=== PATIENT | female | born 1960 | race Caucasian/White ===

== ENCOUNTER → 2016-04-20 | Outpatient (CLI) | payer BC ==
[~2016-04-20] MED LIST: CETI10TA84 PO; CIPR-255 PO; DICY10CA55 PO; HYDR-5688 PO; HYDR25TA4 PO; LANS30CA12 PO
--- NOTE | 2016-04-20 12:32 | MAMMOGRAPHY REPORT ---
BILATERAL DIGITAL SCREENING MAMMOGRAM TOMOSYNTHESIS WITH CAD: 04/20/2016 CLINICAL HISTORY: Routine screening. Patient has no complaints. TECHNIQUE: Breast tomosynthesis in addition to standard 2D mammography was performed. Current study was also evaluated with a Computer Aided Detection (CAD) system. COMPARISON: Comparison is made to exams dated: 03/05/2015 mammogram, 12/10/2013 mammogram, 11/05/2012 mammogram, 03/17/2015 mammogram, 11/06/2011 mammogram, and 08/17/2010 mammogram - [facility]. BREAST COMPOSITION: The tissue of both breasts is almost entirely fatty. FINDINGS: No suspicious masses, calcifications, or areas of architectural distortion are noted in e ither breast. There has been no significant interval change compared to prior exams. IMPRESSION: ACR BI-RADS CATEGORY 1: NEGATIVE There is no mammographic evidence of malignancy. A 1 year screening mammogram is recommended. The p atient will receive written notification of the results. Approximately 10% of breast cancers are not detected with mammography. A negative mammographic repor t should not delay biopsy if a clinically suggestive mass is present. Astrid Scott M.D. /:04/20/2016 11:43:16 [employer]: Nava NETTLESR, M, [facility] letter sent: Normal 1/2 BI-RADS Code: ACR BI-RADS Category 1: Negative
== END | disposition home or self-care (01) ==
LOC: C.MAMM 09:57
PROVIDERS: ATTEND Nurse Practitioner
DX: Z12.31 Encounter for screening mammogram for malignant neoplasm of breast (principal)

== ENCOUNTER → 2017-05-30 | Outpatient (CLI) | payer OTHER ==
[~2017-05-30] MED LIST changes: -HYDR-5688 PO
--- NOTE | 2017-05-31 14:43 | MAMMOGRAPHY REPORT ---
BILATERAL DIGITAL SCREENING MAMMOGRAM TOMOSYNTHESIS WITH CAD: 05/30/2017 CLINICAL HISTORY: Routine screening. Patient has no complaints. TECHNIQUE: Breast tomosynthesis in addition to standard 2D mammography was performed. Current study was also evaluated with a Computer Aided Detection (CAD) system. COMPARISON: Comparison is made to exams dated: 04/20/2016 mammogram, 10/07/2015 ultrasound, 10/07/2015 mammogram, 03/29/2015 aspiration, 03/17/2015 ultrasound, and 03/17/2015 mammogram - [facility]. BREAST COMPOSITION: The tissue of both breasts is almost entirely fatty. FINDINGS: The parenchymal pattern is unchanged. No developing mass, architectural distortion or clus ter of suspicious microcalcifications is seen in either breast. IMPRESSION: ACR BI-RADS CATEGORY 2: BENIGN There is no mammographic evidence of malignancy. A 1 year screening mammogram is recommended. The pa tient will receive written notification of the results. Approximately 10% of breast cancers are not detected with mammography. A negative mammographic report should not delay biopsy if a clinically suggestive mass is present. Jocelyn Barrera M.D. ay/:05/30/2017 15:24:22 [employer]: Janeen Simmons, [facility] letter sent: Normal 1/2 BI-RADS Code: ACR BI-RADS Category 2: Benign
== END | disposition home or self-care (01) ==
LOC: C.MAMM 13:16
PROVIDERS: ATTEND Nurse Practitioner
DX: Z12.31 Encounter for screening mammogram for malignant neoplasm of breast (principal)

== ENCOUNTER 2017-09-26 14:44 | Emergency (ER) | payer OTHER ==
[~2017-09-26] VITALS: Ht 157.5 cm; Wt 103.1 kg
[2017-09-26 14:46] VITALS: TEMP 36.4; Ht 157.5 cm; Wt 103.1 kg
[2017-09-26] MEDS ORDERED: TRIA1SPR4 NAE (15:20)
[2017-09-26] MEDS ORDERED: PRLSR20 PO (15:20)
[2017-09-26] MEDS ORDERED: LISI-729 PO (15:20)
[2017-09-26] MEDS ORDERED: ALBUAER INH (15:20)
[2017-09-26] MEDS ORDERED: SODIUM CHLORIDE 0.9% 1000ML 1,000 ML IV STA (15:47)
--- NOTE | 2017-09-26 15:57 | DIAGNOSTIC IMAGING REPORT ---
CHEST ONE VIEW PORTABLE CLINICAL HISTORY: Hypertension, palpitations. COMPARISON STUDY: 10/21/2011 FINDINGS: The heart is at the upper limits of normal in size. There is no failure. There is no focal pulmonary consolidation. There are no pleural effusions.[ IMPRESSION: No active disease in the chest. Electronically signed by: Georgi Batres M.D. 09/26/2017 3:55 PM Dictated Date/Time: 09/26/2017 3:55 PM
--- NOTE | 2017-09-26 16:12 | EMERGENCY ROOM VISIT NOTE ---
History Report prepared by Marco: Terry Segovia Under the Supervision of: Dr. Yesy Culver D.O. First contact with patient: 14:58 Chief Complaint: HYPERTENSION Stated Complaint: PHYSICIAN REFERRAL, HYPERTENSION History of Present Illness The patient is a 56 year old female who presents to the Emergency Room with complaints of constant hypertension that began this morning. She states her blood pressure was "154/100". She states she was not doing anything strenuous at the time and states sitting down did not resolve her symptoms. Patient states she measures her blood pressure daily using a monitor around her upper arm. Patient states her blood pressure is usually in the "120's". She adds she takes 5mg lisinopril and 25mg of hydrochlorothiazide daily. Patient states she was referred to the ER by her PCP. She adds she has a headache located on her left-side behind her eye. Past medical history includes migraines, but patient denies her headache feeling like a migraine. She states she has felt lightheaded and "off-balance" as well. She adds she has chest pain but feels its secondary to her nerves of being in the ER. Patient adds she had blurry vision this morning but it has resolved. Patient adds she has a history of panic attacks but states she does not feel like she is having a panic attack right now. Patient adds she has been feeling more depressed recently. Patient has a family history of hypertension. Patient denies any leg swelling. Patient is present with her . Source of History: patient Onset: This morning Position: chest Timing: constant Modifying Factors (Relieving): other (None) Associated Symptoms: + headache, + chest pain Note: Positive blurry vision and lightheadedness. Negative leg swelling. Review of Systems See HPI for pertinent positives & negatives. A total of 10 systems reviewed and were otherwise negative. Past Medical & Surgical Medical Problems: (1) Chronic cholecystitis Family History Hypertension Social History Smoking Status: Never Smoker Alcohol Use: occasionally Marital Status: Housing Status: lives with family Current/Historical Medications Scheduled Cetirizine (Zyrtec), 10 MG PO QAM Hydrochlorothiazide (Hctz), 25 MG PO QAM Lisinopril (Zestril), 5 MG PO QPM Omeprazole (Prilosec), 20 MG PO QAM Scheduled PRN Albuterol Sulfate (Proventil Hfa), 1 PUFF INH for SOB/Wheezing Triamcinolone Acetonide (Nasal (Nasacort Allergy 24Hr), 1-2 SPRAYS ADAM DAILY PRN for ALLERGIES Allergies Coded Allergies: Cat Dander (Verified Adverse Reaction, Mild, STUFFY HEAD, 09/26/17) Codeine (Verified Adverse Reaction, Mild, NIGHTMARES, 12/22/15) Dust (Verified Adverse Reaction, Mild, STUFFY HEAD, 09/26/17) Grass (Verified Adverse Reaction, Mild, STUFFY HEAD, 09/26/17) POLLEN (Verified Adverse Reaction, Mild, STUFFY HEAD, 09/26/17) Physical Exam Vital Signs Date Time Temp Pulse Resp B/P (MAP) Pulse Ox O2 Delivery O2 Flow Rate FiO2 09/26/17 20:20 09/26/17 19:58 80 20 168/93 96 Room Air 09/26/17 18:30 65 20 163/113 95 09/26/17 17:51 72 19 188/127 97 Room Air 09/26/17 17:09 82 20 188/112 97 Room Air 09/26/17 15:00 85 18 192/125 96 Room Air 09/26/17 14:46 36.4 81 20 196/115 95 Room Air Physical Exam GENERAL: alert, well appearing, well nourished, no distress, non-toxic EYE EXAM: normal conjunctiva, PERRL and EOM's grossly intact OROPHARYNX: no exudate, no erythema, lips, buccal mucosa, and tongue normal and mucous membranes are moist NECK: supple, no nuchal rigidity, no adenopathy, non-tender LUNGS: Clear to auscultation. Normal chest wall mechanics HEART: no murmurs, S1 normal and S2 normal ABDOMEN: abdomen soft, non-tender, normo-active bowel sounds, no masses, no rebound or guarding. BACK: Back is symmetrical on inspection and there is no deformity, no midline tenderness, no CVA tenderness. SKIN: no rashes and no bruising UPPER EXTREMITIES: upper extremities are grossly normal. LOWER EXTREMITIES: No pitting edema. NEURO EXAM: Normal sensorium, cranial nerves II-XII grossly intact, normal speech, no gross weakness of arms, no gross weakness of legs. No drift. Finger to nose intact. Gross sensation intact. Medical Decision & Procedures ER Provider Diagnostic Interpretation: Radiology results have been interpreted by the radiologist and reviewed by me. CHEST ONE VIEW PORTABLE CLINICAL HISTORY: Hypertension, palpitations. COMPARISON STUDY: 10/21/2011 FINDINGS: The heart is at the upper limits of normal in size. There is no failure. There is no focal pulmonary consolidation. There are no pleural effusions.[ IMPRESSION: No active disease in the chest. Electronically signed by: Georgi Batres M.D. 09/26/2017 3:55 PM Laboratory Results 09/26/17 16:40 Red Blood Count 5.01, Mean Corpuscular Volume 85.4, Mean Corpuscular Hemoglobin 29.5, Mean Corpuscular Hemoglobin Concent 34.6, Mean Platelet Volume 10.5, Neutrophils (%) (Auto) 45.1, Lymphocytes (%) (Auto) 43.2, Monocytes (%) (Auto) 8.1, Eosinophils (%) (Auto) 3.1, Basophils (%) (Auto) 0.3, Neutrophils # (Auto) 2.94, Lymphocytes # (Auto) 2.81, Monocytes # (Auto) 0.53, Eosinophils # (Auto) 0.20, Basophils # (Auto) 0.02 09/26/17 16:40 Test 09/26/17 16:40 09/26/17 17:00 White Blood Count 6.51 K/uL (4.8-10.8) Red Blood Count 5.01 M/uL (4.2-5.4) Hemoglobin 14.8 g/dL (12.0-16.0) Hematocrit 42.8 % (37-47) Mean Corpuscular Volume 85.4 fL (80-100) Mean Corpuscular Hemoglobin 29.5 pg (25-34) Mean Corpuscular Hemoglobin Concent 34.6 g/dl (32-36) Platelet Count 279 K/uL (130-400) Mean Platelet Volume 10.5 fL (7.4-10.4) Neutrophils (%) (Auto) 45.1 % Lymphocytes (%) (Auto) 43.2 % Monocytes (%) (Auto) 8.1 % Eosinophils (%) (Auto) 3.1 % Basophils (%) (Auto) 0.3 % Neutrophils # (Auto) 2.94 K/uL (1.4-6.5) Lymphocytes # (Auto) 2.81 K/uL (1.2-3.4) Monocytes # (Auto) 0.53 K/uL (0.11-0.59) Eosinophils # (Auto) 0.20 K/uL (0-0.5) Basophils # (Auto) 0.02 K/uL (0-0.2) RDW Standard Deviation 47.3 fL (36.4-46.3) RDW Coefficient of Variation 15.4 % (11.5-14.5) Immature Granulocyte % (Auto) 0.2 % Immature Granulocyte # (Auto) 0.01 K/uL (0.00-0.02) Prothrombin Time 9.9 SECONDS (9.0-12.0) Prothromb Time International Ratio 0.9 (0.9-1.1) Anion Gap 7.0 mmol/L (3-11) Est Creatinine Clear Calc Drug Dose 76.0 ml/min Estimated GFR () 79.6 Estimated GFR (Non- 68.7 BUN/Creatinine Ratio 21.6 (10-20) Calcium Level 9.8 mg/dl (8.5-10.1) Magnesium Level 2.2 mg/dl (1.8-2.4) Total Bilirubin 0.6 mg/dl (0.2-1) Aspartate Amino Transf (AST/SGOT) 25 U/L (15-37) Alanine Aminotransferase (ALT/SGPT) 33 U/L (12-78) Alkaline Phosphatase 56 U/L (45-117) Troponin I < 0.015 ng/ml (0-0.045) Pro-B-Type Natriuretic Peptide 29 pg/ml (0-900) Total Protein 8.1 gm/dl (6.4-8.2) Albumin 4.2 gm/dl (3.4-5.0) Globulin 3.9 gm/dl (2.5-4.0) Albumin/Globulin Ratio 1.1 (0.9-2) Thyroid Stimulating Hormone (TSH) 1.580 uIu/ml (0.300-4.500) Urine Color YELLOW Urine Appearance CLEAR (CLEAR) Urine pH 6.5 (4.5-7.5) Urine Specific [place] 1.013 (1.000-1.030) Urine Protein NEG (NEG) Urine Glucose (UA) NEG (NEG) Urine Ketones NEG (NEG) Urine Occult Blood NEG (NEG) Urine Nitrite NEG (NEG) Urine Bilirubin NEG (NEG) Urine Urobilinogen NEG (NEG) Urine Leukocyte Esterase TRACE (NEG) Urine WBC (Auto) 1-5 /hpf (0-5) Urine RBC (Auto) 0-4 /hpf (0-4) Urine Hyaline Casts (Auto) 0 /lpf (0-5) Urine Epithelial Cells (Auto) 10-20 /lpf (0-5) Urine Bacteria (Auto) NEG (NEG) Laboratory results per my review. Medications Administered Medications (Trade) Dose Ordered Sig/Justa Route Start Time Stop Time Status Last Admin Dose Admin Sodium Chloride 1,000 ml @ 250 mls/hr Q4H STAT IV 09/26/17 15:47 09/26/17 19:46 DC 09/26/17 16:42 250 MLS/HR Lisinopril (Zestril Tab) 5 mg NOW ONCE PO 09/26/17 16:30 09/26/17 16:31 DC 09/26/17 16:42 5 MG Hydrochlorothiazide (Hydrochlorothiazide Tab) 25 mg NOW STAT PO 09/26/17 17:17 09/26/17 17:19 DC 09/26/17 17:48 25 MG ECG Per My Interpretation Indication: chest pain, other (Hypertension) Rate (beats per minute): 68 Rhythm: normal sinus Findings: no acute ischemic change, no ectopy, other (Normal axis/intervals) ED Course 1502: The patient was evaluated in room B5. A complete history and physical exam was performed. 1547: Sodium Chloride 1000 ml @ 250 mls/hr IV 1630: Lisinopril 5mg PO 1717: Hydrochlorothiazide 25mg PO 1839: I reevaluated the patient. She states she is feeling better. 2012: Upon reevaluation, the patient is feeling better. I discussed the findings and the treatment plan with the patient. She verbalizes agreement and understanding. She was discharged home. Medical Decision Differential diagnosis: Etiologies such as migraine headache, meningitis, sinusitis, CO exposure, ICH, SAH, infection, tumor, headache, sinus thrombosis, arterial dissection, as well as others were entertained. Pt well appearing here despite elevated BP. Pt with mild symptoms that improved with better BP suggestive of perhaps mild hypertensive urgency. Pt with chronic HTN and recent addition of lisinopril. Pt on very low doses of hctz and lisinopril. Does admit to eating out more which may have increased sodium intake. Denies recent illness or dehydration. BP improved here, no evidence of end organ damage. I do not suspect ICH or CVA, aaa, dissection, acs , and no evidence of ARF. No dysrhythmia noted on tele. Discussed with pt close f/u with her PCP, sx to watch/return for, continued use of her routine meds, hydration, avoidance of additional salt in her diet, she verbalized understanding of all of this and was agreeable with plan. Medication Reconcilliation Current Medication List: was personally reviewed by me Blood Pressure Screening Patient's blood pressure: Elevated blood pressure Blood pressure disposition: Referred to PCP Impression Primary Impression: Hypertension Additional Impression: Hypokalemia Scribe Attestation The scribe's documentation has been prepared under my direction and personally reviewed by me in its entirety. I confirm that the note above accurately reflects all work, treatment, procedures, and medical decision making performed by me. Departure Information Dispostion Home / Self-Care Referrals Reba Eugene D.O. (PCP) Patient Instructions My [facility] Additional Instructions Please call and follow-up with your family doctor regarding her blood pressure. Please continue your blood pressure medications as they are prescribed. If you have any recurrent headache, vision changes, chest pain, trouble breathing, palpitations, abdominal pain, swelling of the legs, numbness or tingling, dizziness, you have any other new concerns, please return to the ER immediately. Please avoid any additional salt in your diet including with processed foods, canned foods, or lunch meat. Please make sure you are drinking plenty of water. Problem Qualifiers Primary Impression: Hypertension Hypertension type: essential hypertension Qualified Codes: I10 - Essential ( primary) hypertension
[2017-09-26] MEDS ORDERED: LISINOPRIL 5 MG TAB PO ONE (16:30)
[2017-09-26 16:57] LABS: BASO % 0.3 %; BASO ABS # 0.02 K/uL (0-0.2); EOS % 3.1 %; HEMATOCRIT 42.8 % (37-47); HEMOGLOBIN 14.8 g/dL (12.0-16.0); IG# 0.01 K/uL (0.00-0.02); LYMPH % 43.2 %; LYMPH ABS # 2.81 K/uL (1.2-3.4); MEAN CELL VOLUME 85.4 fL (80-100); MEAN CORPUSCULAR HEMOGLOBIN 29.5 pg (25-34); MEAN CORPUSCULAR HGB CONC 34.6 g/dl (32-36); MEAN PLATELET VOLUME 10.5 fL (7.4-10.4); MONO % 8.1 %; MONO ABS # 0.53 K/uL (0.11-0.59); NEUT % 45.1 %; NEUT ABS # 2.94 K/uL (1.4-6.5); PLATELET COUNT 279 K/uL (130-400); RED CELL DISTRIBUTION WIDTH CV 15.4 % (11.5-14.5); RED CELL DISTRIBUTION WIDTH SD 47.3 fL (36.4-46.3); WHITE BLOOD COUNT 6.51 K/uL (4.8-10.8)
[2017-09-26 17:11] LABS: INR 0.9 (0.9-1.1)
[2017-09-26] MEDS ORDERED: HYDROCHLOROTHIAZIDE 25 MG TAB PO STA (17:17)
[2017-09-26 17:30] LABS: ALBUMIN 4.2 gm/dl (3.4-5.0); ALKALINE PHOSPHATASE 56 U/L (45-117); ALT/SGPT 33 U/L (12-78); AST/SGOT 25 U/L (15-37); BLOOD UREA NITROGEN 20 mg/dl (7-18); CALCIUM 9.8 mg/dl (8.5-10.1); CARBON DIOXIDE 31 mmol/L (21-32); CREATININE 0.93 mg/dl (0.60-1.20); GLUCOSE 87 mg/dl (70-99); POTASSIUM 3.2 mmol/L (3.5-5.1); SODIUM 137 mmol/L (136-145); TOTAL PROTEIN 8.1 gm/dl (6.4-8.2)
[2017-09-26 19:58] VITALS: BP 168/93; PULSE 80; O2SAT 96
== END 2017-09-26 20:20 | disposition home or self-care (01) ==
LOC: C.EDB 14:45
DX: I10 Essential (primary) hypertension (principal); E87.6 Hypokalemia; R51 Headache; F41.8 Other specified anxiety disorders; Z79.899 Other long term (current) drug therapy; Z88.6 Allergy status to analgesic agent; Z91.048 Other nonmedicinal substance allergy status; Z82.49 Family history of ischemic heart disease and other diseases of the circulatory system